=== PATIENT | female | born 1980 | race Caucasian/White ===

== ENCOUNTER 2018-12-09 05:28 | Day surgery (SDC) | payer MEDICAID ==
[~2018-12-09] VITALS: Ht 111.8 cm; Wt 66.9 kg
[2018-12-09] VITALS (14 sets, daily range): BP systolic 107–133; BP diastolic 64–98; PULSE 84–99; RESP 18–26
[2018-12-09] MEDS ORDERED: LACTATED RINGER'S 1,000 ML IV SCH (06:30)
[2018-12-09] MEDS ORDERED: METOCLOPRAMIDE 10 MG INJ ONE (07:00)
[2018-12-09] MEDS ORDERED: DEXAMETHASONE 4 MG/ML 5 ML INJ ONE (07:00)
--- NOTE | 2018-12-09 07:24 | PREAC ---
Date/Time of Note Date/Time of Note DATE: 12/09/18 TIME: 07:23 Anesthesia Eval and Record Evaluation Time Pre-Procedure Interview DATE: 12/09/18 TIME: 07:23 Age 38 Sex female NPO: 8 hrs Preoperative diagnosis desires sterility Planned procedure lap BTL Past Medical History Past Medical History: None Surgery & Anesthesia Issues Hx of difficult intubation Meds Anticoagulation: No Beta Desirae within 24 hr: No Reason Beta Desirae not given: Pt. not on B-Desirae Current Medications Lactated Ringer's 1,000 ml @ 0 mls/hr Q0M IV Last administered on 12/09/18at 06:55; Admin Dose 0 MLS/HR; Start 12/09/18 at 06:30 Meds reviewed: Yes Allergies Coded Allergies: No Known Allergy (Unverified , 12/09/18) Allergies Reviewed: Yes Labs/Studies Labs Reviewed: Reviewed by anesthesiologist test: Negative Pre-procedure Exam Last vitals Vital Signs Date Temp Pulse Resp B/P (MAP) Pulse Ox O2 O2 Flow FiO2 Time Delivery Rate 12/09/18 98.1 91 18 125/80 99 Room Air 06:04 (95) Airway: Adequate mouth opening, Adequate thyromental dist Mallampati: Mallampati III Teeth: Normal Lung: Normal Heart: Normal ASA Physical Status ASA physical status: 1 Emergency: None Planned Anesthetic General/MAC: ETT Planned Pain Management Single shot nerve block, Parenteral pain med, Local by surgeon Pre-operative Attestations Prior to commencing anesthesia and surgery, the patient was re-evaluated, there was verification of: *The patient's identity *The results of appropriate recent lab work and preoperative vital signs *The above evaluation not changing prior to induction *Anesthetic plan, risk benefits, alternative and complications discussed with p atient/family; questions answered; patient/family understands, accepts and wishes to proceed. Production Or Plant Engineer used (me) DARIN HERNÁNDEZ MD Dec 09, 2018 07:24
[2018-12-09] MEDS ORDERED: FENTAnyl 50 MCG/ML VIAL ONE (07:29)
[2018-12-09] MEDS ORDERED: PROPOFOL 20 ML ONE (07:29)
[2018-12-09] MEDS ORDERED: ROCURONIUM 50 MG INJ ONE (07:29)
[2018-12-09] MEDS ORDERED: SUCCINYLCHOLINE CHLORIDE 100 MG/5 ML SYG IV ONE (07:29)
[2018-12-09] MEDS ORDERED: MIDAZOLAM 1 MG/ML 2 ML INJ ONE (07:29)
[2018-12-09] MEDS ORDERED: LIDOCAINE 2% (SDV) 5 ML INJ ONE (07:29)
[2018-12-09] MEDS ORDERED: ONDANSETRON 4 MG INJ ONE (07:30)
[2018-12-09] MEDS ORDERED: MEPERIDINE 25 MG INJ IV PRN (07:30)
[2018-12-09] MEDS ORDERED: KETOROLAC 30 MG INJ IV PRN (07:30)
[2018-12-09] MEDS ORDERED: HYDROmorphONE 1 MG/5 ML IV SYRINGE IV PRN ×2 (07:30)
[2018-12-09] MEDS ORDERED: FENTAnyl 50 MCG/ML VIAL IV PRN (07:30)
[2018-12-09] MEDS ORDERED: ONDANSETRON 4 MG INJ IV PRN (07:30)
[2018-12-09] MEDS ORDERED: LEVALBUTEROL (NEB) 1.25 MG/0.5 ML AMP HHN PRN (07:30)
[2018-12-09] MEDS ORDERED: DIPHENHYDRAMINE 50 MG INJ IV PRN (07:30)
[2018-12-09] MEDS ORDERED: CEFAZOLIN 1 GM INJ ONE (07:32)
[2018-12-09] MEDS ORDERED: BUPIVACAINE 0.5%/EPI (SDV) 30 ML INJ ONE (08:31)
[2018-12-09] MEDS ORDERED: ROPIVACAINE 0.5 % 30 ML VIAL ONE (08:52)
--- NOTE | 2018-12-09 09:00 | OPR ---
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 Endometriosis. she had adhesions from the tubes to her ovaries bilaterally. there was adhesions from ovaries to uterus CONSENT: Please see my preop H and P consent in the office for the consent process. DESCRIPTION OF PROCEDURE: She was taken to operating room and general anesthesia was induced. She was prepped and draped in the usual sterile fashion in dorsal lithotomy position. Surgical time-out was done. Anterior lip of the cervix was grasped using a single-tooth tenaculum, and a HUMI was inserted in normal fashion. The tenaculum was removed. There was no bleeding from the cervix. The patient already had a Tovar catheter as well. Gloves were changed. A 5 mm incision was developed inside the umbilicus. A blunt trocar was inserted in the normal fashion. Intraperitoneal position was confirmed using the laparoscope. Pneumoperitoneum was obtained. The patient was placed in Trendelenburg position. A second trocar was inserted under direct visualization of the laparoscope at the pubic hairline in the midline. Right tube was coagulated and transected 7 cm medial to fimbriated portion of the tube. Right salpingectomy was performed by coagulating and transecting the mesosalpinx while at all times hugging the tube. The tube was removed and sent to pathology. the edges of the mesosalpinx was not bleeding, but for abundance of precaution, I cauterized the edges of the mesosalpinx again. There was no bleeding. Same procedure was done on the contralateral side. All instruments removed under direct visualization of the laparoscope after pneumoperitoneum was released. There was no bleeding. Skin closed using 4-0 Monocryl. Then 10 mL 0.25% Marcaine with epinephrine was injected at the incision sites. HUMI was removed. There was no bleeding from the vagina. Patient tolerated the procedure well. ABIOLA RUSHING MD Dec 09, 2018 09:00
[2018-12-09] MEDS: FENTAnyl 50 MCG/ML VIAL IV PRN ×2 (09:18→09:25)
[2018-12-09] MEDS ORDERED: DOXYCYCLINE 100 MG in SOD CHLORIDE 0.9% 250 ML IVPB SCH (09:30)
[2018-12-09] MEDS ORDERED: CEFTRIAXONE 2 GM/50 ML (PMX) 50 ML IVPB ONE (09:30)
--- NOTE | 2018-12-09 12:11 | PAC ---
Date/Time of Note Date/Time of Note DATE: 12/09/18 TIME: 12:11 Post-Anesthesia Notes Post-Anesthesia Note Last documented vital signs Vital Signs Date Temp Pulse Resp B/P (MAP) Pulse Ox O2 O2 Flow FiO2 Time Delivery Rate 12/09/18 98.0 88 19 114/77 100 Room Air 10:05 (89) Activity: WNL Respiratory function: WNL Cardiovascular function: WNL Mental status: Baseline Pain reasonably controlled: Yes Hydration appropriate: Yes Nausea/Vomiting absent: Yes DARIN HERNÁNDEZ MD Dec 09, 2018 12:11
--- NOTE | 2018-12-11 18:07 | RADRPT ---
Vent Rate: 77 bpm RR Interval: 0 msec MO Interval: 150 msec QRS Duration: 84 msec QT Interval: 360 msec QTC Interval: 407 msec P-R-T Clyman: 65 - 77 - 49 degrees Normal sinus rhythm Normal ECG Electronically Signed By: Jayy Jaime
== END 2018-12-09 11:45 | disposition home or self-care (01) ==
LOC: SDS 05:28
PROVIDERS: ATTEND Specialist
DX: Z30.2 Encounter for sterilization (principal); R94.31 Abnormal electrocardiogram [ECG] [EKG]
CPT/HCPCS: 58661; 93005; J0690; J0696; J1100; J1885; J2175; J2250; J2405; J2765; J2795; J3010; J7050; Z7512; Z7610